=== PATIENT | male | born 1955 | race Caucasian/White ===

== ENCOUNTER 2019-10-01 16:03 | Observation (INO) ==
--- NOTE | 2019-10-01 16:55 | Emergency Department Note ---
ED Provider Note CHIEF COMPLAINT: Right ankle injury 4 hours ago HISTORY OF PRESENT ILLNESS: Patient is a 64-year-old male who presents the emergency department from [facility] for evaluation of a right ankle fracture. He reports around noon today, roughly 4 hours prior to arrival, he was coming down steps, and missed the last step, he believes sustaining an inversion type injury to the right ankle with immediate onset of pain. He tried to get up and took a few steps on the right ankle but had pain and was unable to ambulate. He went to [facility] where he had an x-ray performed which noted a bimalleolar fracture. [facility] was concerned because the patient has some superficial skin injuries over the medial malleolus and were concerned this could be an open fracture. The patient has not had any medications for discomfort, he rates his pain a 1/10 at rest. He applied ice only briefly. He notes a constant, aching pain in the entire ankle that is worse with movement and weightbearing. No numbness or tingling. REVIEW OF SYSTEMS: Review of systems as per HPI. All other systems reviewed were negative. At least 6 systems reviewed. PMH: Electronic medical records are reviewed and summarized as above/below. See Problem List. SOCIAL HISTORY: Patient lives at home with his spouse. Retired. PHYSICAL EXAM: Vital Signs: Reviewed Nurses' notes. MENTAL STATUS: Patient is a pleasant, well-appearing 64-year-old male who is awake and alert and in no acute distress. MUSCULOSKELETAL: Examination of the right lower extremity note both medial and lateral malleolar soft tissue swelling and ecchymosis. He has superficial scratches noted over the medial ankle. These are not full-thickness, do not gape with traction, and there is no bleeding noted. The ankle is globally tender to palpation. There is no pain over the fifth metatarsal or the proximal fibular head. Capillary refills less than 2 seconds. Dorsalis pedis pulses easily palpable. Calf is soft and nontender. The right lower extremity is neurovascularly intact. EMERGENCY DEPARTMENT COURSE: The patient was seen and assessed as above. Old records were reviewed. X-ray from outside facility was loaded into our x-ray viewer and was reviewed and interpreted by myself as a bimalleolar fracture, slightly displaced. X-ray findings were reviewed with the patient and his family. I did review the x-rays with Dr. Porter who is on-call for orthopedic surgery. Initially plan was to send the patient home for outpatient follow-up, but arrangements were able to be made for the patient to go to the OR tomorrow, and thus he will be admitted pending surgical intervention on 10/02/2019. This was reviewed with the patient and he was in agreement. The patient was placed in a short leg posterior Ortho-Glass splint. He was instructed on a nonweightbearing gait using crutches in the emergency department. He was admitted to the orthopedic service for plans for surgical intervention. Differential diagnoses included fracture, sprain, dislocation, among others. Impression & Plan Bimalleolar fracture of right ankle Past Med/Surg History Medical History Diabetes Dyslipidemia Social History Feels Safe at Home: Yes Smoking Status: Former smoker Results & Data Vital Signs Vital Signs - 24 hr 10/01/19 16:07 10/01/19 18:18 Temperature 36.7 C Temperature Source Oral Pulse Rate 116 H 87 Respiratory Rate 19 18 Respiratory Effort / Characteristics Non-Labored Respiratory Depth Normal Respiratory Pattern Regular Blood Pressure 154/83 H 141/81 H Blood Pressure Mean 106 Pulse Oximetry 97 99 Oxygen Delivery Method Room Air Sepsis Recent Fever Within 48 Hours No Sepsis Action Taken by Nursing No Action Required Home Medications Current Medication List: was personally reviewed by me Laboratory Data Result diagrams: 10/01/19 17:37 10/01/19 17:37 Lab Results 10/01/19 10/01/19 10/01/19 Range/Units 17:37 17:37 17:37 WBC 13.09 H (4.8-10.8) K/uL RBC 4.94 (4.7-6.1) M/uL Hgb 15.8 (14.0-18.0) g/dL Hct 44.7 (42-52) % MCV 90.5 (80-100) fL MCH 32.0 (25-34) pg MCHC 35.3 (32-36) g/dL RDW Std Deviation 41.8 (36.4-46.3) fL RDW Coeff of Gloria 12.7 (11.5-14.5) % Plt Count 247 (130-400) K/uL MPV 10.2 (7.4-10.4) fL Immature Gran % (Auto) 0.3 % Neut % (Auto) 81.7 % Lymph % (Auto) 10.4 % [place] % (Auto) 7.2 % Eos % (Auto) 0.2 % Baso % (Auto) 0.2 % Immature Gran # (Auto) 0.04 H (0.00-0.02) K/uL Neut # (Auto) 10.70 H (1.4-6.5) K/uL Lymph # (Auto) 1.36 (1.2-3.4) K/uL [place] # (Auto) 0.94 H (0.11-0.59) K/uL Eos # (Auto) 0.03 (0-0.5) K/uL Baso # (Auto) 0.02 (0-0.2) K/uL PT 10.5 (9.0-12.0) Seconds INR 1.0 (0.9-1.1) Sodium 137 (136-145) mmol/L Potassium 3.9 (3.5-5.1) mmol/L Chloride 106 (98-107) mmol/L Carbon Dioxide 25 (21-32) mmol/L Anion Gap 6.0 (3-11) BUN 24 H (7-18) mg/dl Creatinine 1.07 (0.6-1.4) mg/dl Est Cr Clr Drug Dosing 78.6 ml/min Est GFR ( Amer) 85.8 Est GFR (Non-Af Amer) 74.0 BUN/Creatinine Ratio 22.6 H (10-20) Glucose 151 H (70-99) mg/dl Calcium 9.5 (8.5-10.1) mg/dl Imaging Data Attestation: I personally reviewed and interpreted this imaging study as follows: My Impression: Bimalleolar right ankle fracture Blood Pressure Blood Pressure Findings: Elevated blood pressure Blood Pressure Disposition: elevated BP felt to be situational Discharge Plan Visit Data Chief Complaint: Ankle Pain Stated Complaint: RT ANKLE FX ED Provider: Bassam Dennison ED Midlevel Provider: Davis Serrato Discharge Problem: Bimalleolar fracture of right ankle Patient Disposition: Admitted As Inpatient Discharge Instructions Interventions: ED Discharge Assessment Last Done: 10/01/19 18:18 Forms Stand Alone Forms: My [facility], Important Visit Information Prescriptions Prescriptions: No Action atorvastatin 20 mg tablet 20 mg PO HS RF: 0 sertraline 25 mg tablet 25 mg PO HS RF: 0 lisinopril 2.5 mg tablet 2.5 mg PO QAM RF: 0 Lantus Solostar U-100 Insulin 100 unit/mL (3 mL) insulin pen 48 unit SUBCUT QAM RF: 0 Referrals Referrals: PCP,NO [Physician] -
[2019-10-01] MEDS ORDERED: ONDANSETRON INJ 2 MG/ML 2 ML VIAL IV PRN (17:00)
[2019-10-01 17:53] LABS: Basophils # (auto) 0.02 K/uL (0-0.2); Basophils % (auto) 0.2 %; Eosinophils # (auto) 0.03 K/uL (0-0.5); Eosinophils % (auto) 0.2 %; Hematocrit (blood only) 44.7 % (42-52); Hemoglobin 15.8 g/dL (14.0-18.0); Immature Granulocytes # (auto) 0.04 K/uL (0.00-0.02); Immature Granulocytes % (auto) 0.3 %; Lymphocytes # (auto) 1.36 K/uL (1.2-3.4); Lymphocytes % (auto) 10.4 %; Mean Corpuscular Hgb Conc 35.3 g/dL (32-36); Mean Corpuscular Volume 90.5 fL (80-100); Mean Platelet Volume 10.2 fL (7.4-10.4); Monocytes # (auto) 0.94 K/uL (0.11-0.59); Monocytes % (auto) 7.2 %; Neutrophils % (auto) 81.7 %; Platelet Count 247 K/uL (130-400); RDW Coefficient of Variation 12.7 % (11.5-14.5); RDW Standard Deviation 41.8 fL (36.4-46.3); Red Blood Count 4.94 M/uL (4.7-6.1); White Blood Count 13.09 K/uL (4.8-10.8)
[2019-10-01 18:12] LABS: BUN Creatinine Ratio 22.6 (10-20); Calcium 9.5 mg/dl (8.5-10.1); Creatinine Clr Calc Pharmacy 78.6 ml/min; Est GFR (African American) 85.8; Potassium 3.9 mmol/L (3.5-5.1)
[2019-10-01 18:18] LABS: Prothrombin Time 10.5 Seconds (9.0-12.0)
[2019-10-01] MEDS ORDERED: PHARMACY GLYCEMIC MGMT CONSULT PRN (20:45)
--- NOTE | 2019-10-01 20:59 | XRay Report ---
XR chest 2V PA/lateral CLINICAL HISTORY: 64 years-old Male presenting with pre-op. TECHNIQUE: PA and lateral views of the chest were obtained. COMPARISON: None. FINDINGS: Atherosclerosis of the aortic arch. Cardiac silhouette top normal in size. Lungs and pleural spaces c lear. Degenerative changes of the thoracic spine. Upper abdomen normal. IMPRESSION: 1. No acute cardiopulmonary disease. ACT 112: Negative or not required by law. Electronically signed by: Arturo De La Vega M.D. 10/01/2019 8:58 PM
[2019-10-01] MEDS ORDERED: CARBOHYDRATES FOR HYPOGLYCEMIA PO PRN (21:00)
[2019-10-01] MEDS ORDERED: DEXTROSE 50% 50 ML SYRINGE IV PRN (21:00)
[2019-10-01] MEDS ORDERED: GLUCOSE 10 TABS/TUBE PO PRN (21:00)
[2019-10-01] MEDS ORDERED: GLUCOSE 40% GEL 15 GM TUBE PO PRN (21:00)
[2019-10-01] MEDS ORDERED: GLUCAGON FOR INJ 1 MG VIAL SQ PRN (21:00)
[2019-10-01] MEDS: ATORVASTATIN 20 MG TAB PO SCH (21:21)
[2019-10-01] MEDS: SERTRALINE HCL 50 MG TABLET PO SCH (21:21)
[2019-10-01] MEDS: INSULIN ASPART 100 UNITS/ML 3 ML PEN SQ SCH (21:25)
[2019-10-01] MEDS: HYDROmorphone INJ 0.5 MG/0.5 ML SYR IV PRN (23:43)
[2019-10-01] MEDS: SODIUM CHLORIDE 0.9% 1000ML 1,000 ML IV SCH (23:43)
[2019-10-02] MEDS: HYDROmorphone INJ 0.5 MG/0.5 ML SYR IV PRN ×3 (05:36→12:52)
[2019-10-02] MEDS ORDERED: CEFAZOLIN 2000MG 2,000 MG/15 ML SYR IV SCH (06:00)
[2019-10-02] MEDS: INSULIN ASPART 100 UNITS/ML 3 ML PEN SQ SCH ×3 (06:11→20:10)
--- NOTE | 2019-10-02 06:42 | History & Physical Report ---
Date of Service October 02, 2019 Assessment & Plan (1) Bimalleolar fracture of right ankle: He will be admitted to the orthopedic service. Preoperative lab work will be obtained. He will be placed on glycemic control. He is currently on the OR schedule for operative fixation of his ankle in the afternoon of October 02. He is n.p.o. Consent has been obtained for the procedure. Encounter type: initial encounter Fracture type: closed Qualified Code(s): S82.841A - Displaced bimalleolar fracture of right lower leg, initial encounter for closed fracture Present on Admission?: Yes History of Present Illness Chief Complaint: Right unstable bimalleolar ankle fracture Primary Care Provider: FIDENCIO Silva Kishan is a pleasant 64-year-old male who stepped awkwardly off a step into his driveway late yesterday. He severely twisted his right ankle. He went to urgent care and x-rays demonstrated an unstable bimalleolar right ankle fracture. He also had some superficial wounds on the medial side. He was then sent to the emergency room. Orthopedics was contacted and he was admitted to the orthopedic service for definitive fixation the following day. Allergies Allergy/AdvReac Type Severity Reaction Status Date / Time No Known Allergies Allergy Verified 10/01/19 17:19 Home Medications Home Medications Medication Instructions Recorded Confirmed Type atorvastatin 20 mg PO HS 10/01/19 10/01/19 History insulin glargine [Lantus Solostar 48 unit SUBCUT QAM 10/01/19 10/01/19 History U-100 Insulin] lisinopril 2.5 mg PO QAM 10/01/19 10/01/19 History sertraline 25 mg PO HS 10/01/19 10/01/19 History Past Med/Surg History Medical History Diabetes Dyslipidemia Social History Preferred Language: Mosotho Communication Ability: Effective Application Support Required: No Beliefs That Will Affect Care: None Other Information That Helps Us Care for You: No Feels Safe at Home: Yes Safety Concerns: Feels Safe At This Time Smoking Status: Former smoker Hx Alcohol Use: Yes Hx Substance Use: No Review of Systems All systems reviewed & are unremarkable except as noted in HPI & below Physical Exam Constitutional: WD/WN, vitals as above Eyes: PERRL, conjunctivae normal, anicteric sclerae ENMT: external ear and nose normal, oropharynx normal Neck: trachea midline, no thyromegaly Respiratory: normal respiratory effort Cardiovascular: RRR, no murmur, no edema Gastrointestinal (Abdomen): normal bowel sounds, soft, nontender, no hepatosplenomegaly Musculoskeletal: On physical examination of the right ankle, a posterior splint is in place. He has active motion of all of his toes. He has good capillary refill. His right ankle is elevated. Psychiatric: A+Ox3, euthymic affect Results & Data Vital Signs (Past 12 Hours) Vital Signs Temp Pulse Resp BP BP Pulse Ox 10/01/19 23:12 36.9 C 83 16 115/74 95 10/01/19 18:57 36.8 C 107 H 18 149/83 H 96 Laboratory Results H & H 10/01/19 Range/Units 17:37 Hgb 15.8 (14.0-18.0) g/dL Hct 44.7 (42-52) % Coagulation 10/01/19 Range/Units 17:37 INR 1.0 (0.9-1.1) Diagnostic Findings X-rays of the right ankle show an unstable right bimalleolar ankle fracture. It is a transverse fracture of the medial malleolus and a comminuted distal fibular fracture. There is some slight lateral translation of the ankle.
--- NOTE | 2019-10-02 08:40 | Pharmacy Report ---
Glycemic Control Consultation - Date of Service October 02, 2019 - Scope Scope: Glycemic Pharmacist consulted by Dr Porter on 10/02 for glycemic control and to write orders per [facility] inpatient glycemic control protocol - Objective Weight: 94.801 kg Accuchecks BSG (last 24hrs): 10/01/19 10/01/19 10/01/19 17:37 19:06 20:32 Glucose 151 H POC Glucose 140 H 176 H 10/02/19 06:04 Glucose POC Glucose 115 H Laboratory Data (last 24hrs): 10/01/19 17:37 Potassium 3.9 Carbon Dioxide 25 Anion Gap 6.0 Creatinine 1.07 Est Cr Clr Drug Dosing 78.6 - Recent Pertinent Medications Outpatient Anti-diabetic Regimen: * Lantus 48 units Qam * A1c = ordered for 10/03 Risk Factors for Insulin Resistance: * Recent Surgery: scheduled for 10/02 * Diet: NPO - Assessment & Plan Assessment & Plan: ASSESSMENT: * 64 year old male with fracture of right ankle. Scheduled for OR today. Pharmacy consulted for glycemic management. * Currently NPO this morning in preparation for surgery. Only receiving basal insulin outpatient. Last dose received was 1/6 am of Lantus 48 units * Fasting this AM 115 mg/dl - will reduce basal insulin by ~50% for this morning since NPO status. Outpatient insulin covering total daily insulin requirements (including meals) therefore was more aggressive with reduction of dose this AM * Will add scale for Lantus post surgery/this evening - will monitor if patient receives steroids. So far, did give dexamethasone in OR - will add scale for Lantus tonight PLAN FOR INPATIENT GLYCEMIC CONTROL: * Basal insulin * Lantus 20 units this AM (reduced ~50% for NPO status) * Lantus per scale with dinner/HS -no insulin less than 180 bsg -lantus 10 units if bsg 180 or greater * Bolus insulin * NovoLog per scale ACHS or Q6hrs while NPO * Goal Range: Low 110 mg/dL - High 140 mg/dL * Correction Factor: 20 mg/dL/unit * Nutritional / Prandial insulin per carb ratio of 1 unit per 7 grams CHO consumed * Please note that the plan above was derived based on current level of insulin resistance and hospital stress. These recommendations are appropriate for inpatient admission only. Plan of care upon discharge will need to be reassessed to avoid potential outpatient hypo/hyperglycemia. Thank you.
[2019-10-02] MEDS ORDERED: INSULIN GLARGINE SOLOSTAR 100 UNITS/ML 3 ML PEN SC ONE (09:00)
--- NOTE | 2019-10-02 09:42 | Electrocardiogram Report ---
Test Reason : Blood Pressure : / mmHG Vent. Rate : 107 BPM Atrial Rate : 107 BPM P-R Int : 164 ms QRS Dur : 092 ms QT Int : 324 ms P-R-T Axes : 053 002 043 degrees QTc Int : 432 ms Poor data quality, interpretation may be adversely affected Sinus tachycardia Low voltage QRS Borderline ECG No previous ECGs available Confirmed by Eric Calderón ([id number]) on 10/02/2019 9:42:43 AM Referred By: REFERRED SELF Confirmed By:Eric Calderón
[2019-10-02] MEDS: SODIUM CHLORIDE 0.9% 1000ML 1,000 ML IV SCH ×4 (12:00→23:29)
[2019-10-02] MEDS ORDERED: LIDOCAINE HCL 2% 2 ML VIAL/AMP(20MG/ML) INFIL ONE (15:11)
[2019-10-02] MEDS ORDERED: fentaNYL citrate 100 MCG/2 ML VIAL ONE (15:11)
[2019-10-02] MEDS ORDERED: ONDANSETRON INJ 2 MG/ML 2 ML VIAL ONE (15:11)
[2019-10-02] MEDS ORDERED: DEXAMETHASONE SOD INJ 4 MG/ML VIAL ONE (15:11)
[2019-10-02] MEDS ORDERED: MIDAZOLAM HCL 1 MG/ML 2ML VIAL ONE (15:11)
[2019-10-02] MEDS ORDERED: PROPOFOL IV EMULSION 10 MG/ML 20 ML VIAL IV ONE (15:11)
[2019-10-02] MEDS ORDERED: BUPIVACAINE/EPINEPHRINE 0.5% MPF 1:200,000 10 ML VIAL ONE ×2 (15:27→15:28)
--- NOTE | 2019-10-02 15:38 | Anesthesiology Consultation ---
Date of Service October 02, 2019 Assessment & Plan (1) Encounter for pre-operative examination: Chart Review Chart Review: Acceptable Risk for Surgery and Patient NOT seen in Pre Admission Testing Consults Requested none History Surgery Operation Date: 10/02/19 11:10 Proposed Procedures p Right Ankle Open Reduction Internal Fixation - Martin Horowitz MD Height/Weight Height: 5 ft 7 in Weight: 94.801 kg Allergies Allergy/AdvReac Type Severity Reaction Status Date / Time No Known Allergies Allergy Verified 10/01/19 17:19 Medications Home Medications Medication Instructions Recorded Confirmed Last Taken atorvastatin 20 mg PO HS 10/01/19 10/01/19 09/30/19 insulin glargine [Lantus Solostar 48 unit SUBCUT QAM 10/01/19 10/01/19 10/01/19 U-100 Insulin] lisinopril 2.5 mg PO QAM 10/01/19 10/01/19 10/01/19 sertraline 25 mg PO HS 10/01/19 10/01/19 09/30/19 Active Medications Generic Name Dose Route Start Last Admin Trade Name Freq PRN Reason Stop Dose Admin Atorvastatin Calcium 20 mg 10/01/19 21:00 10/01/19 21:21 Lipitor PO 10/31/19 20:59 20 mg HS ANIYA Administration Hydromorphone HCl 0.5 mg 10/01/19 17:00 10/02/19 12:52 Dilaudid IV 10/15/19 16:59 0.5 mg Q1H PRN Administration Pain Sodium Chloride 1,000 mls @ 80 mls/hr 10/01/19 17:00 10/02/19 12:00 Nss 1000ml IV 10/31/19 16:59 80 mls/hr .[id number] ANIYA Administration Insulin Aspart 0 units 10/01/19 21:00 10/02/19 13:04 Novolog Flexpen SQ 10/31/19 20:59 Not Given Q6 ANIYA Lisinopril 2.5 mg 10/02/19 09:00 10/02/19 09:43 Zestril PO 11/01/19 08:59 2.5 mg QAM ANIYA Administration Sertraline HCl 25 mg 10/01/19 21:00 10/01/19 21:21 Zoloft PO 10/31/19 20:59 25 mg HS ANIYA Administration NPO Date Last Intake of Fluids: 10/02/19 Time Last Intake of Fluids: 23:55 Last Intake of Fluids Comment: a few ice chips Date Last Intake of Solids: 10/01/19 Time Last Intake of Solids: 18:00 Past Medical History Medical History Diabetes Dyslipidemia Social History Smoking Status: Former smoker Hx Alcohol Use: Yes Hx Substance Use: No Physical Exam Vital Signs Last Vital Signs Temp 36.9 C 10/02/19 07:41 Pulse 84 10/02/19 07:41 Resp 18 10/02/19 07:41 BP 101/68 10/02/19 07:41 Pulse Ox 96 10/02/19 07:41 Testing Laboratory Results 10/01/19 17:37 10/01/19 17:37 PT 10.5 Seconds (9.0-12.0) 10/01/19 17:37 INR 1.0 (0.9-1.1) 10/01/19 17:37 10/02/19 10/02/19 10/02/19 15:16 12:05 06:04 POC Glucose 92 112 H 115 H Electrocardiogram Date: 10/01/19 Findings: + ST @ (107) low voltage QRS Chest X-Ray Date: 10/01/19 [place], [place] [phone] XRay Report Patient: GUSTAVO WEEKS Date: 10/01/19 MR#: [id number]: 150 AMBREEN CHRISTOPHER Acct ID:[id number]: Date: 1955[facility] Zip: [place] [address] Age: 64Location: 3N Sex: M Room/Bed: [facility] Att Phy: Andres Porter DODiagnosis: R MAKENZIE ANKLE FRACTURE Leslie Phy: Ashley Ludwig CRNPService Date: 10/01/19 Fam Phy:Interpreting Phy: Arturo De La Vega MD Admit Phy: Andres Porter DO Ordering Phy: Andres Porter DO cc: ~ XR chest 2V PA/lateral CLINICAL HISTORY: 64 years-old Male presenting with pre-op. TECHNIQUE: PA and lateral views of the chest were obtained. COMPARISON: None. FINDINGS: Atherosclerosis of the aortic arch. Cardiac silhouette top normal in size. Lungs and pleural spaces clear. Degenerative changes of the thoracic spine. Upper abdomen normal. IMPRESSION: 1. No acute cardiopulmonary disease. ACT 112: Negative or not required by law. Electronically signed by: Arturo De La Vega M.D. 10/01/2019 8:58 PM Dictated: 10/01/192056 Transcribed: 10/01/192056
[2019-10-02] MEDS ORDERED: LABETALOL HCL IV 5 MG/ML 20ML IV PRN (15:42)
[2019-10-02] MEDS ORDERED: PHENYLEPHRINE 100MCG/ML 5ML SYR IV PRN (15:42)
[2019-10-02] MEDS ORDERED: HYDROmorphone INJ 1 MG/ML SYRINGE IV PRN (15:42)
[2019-10-02] MEDS ORDERED: ATROPINE SULFATE 0.1 MG/ML 10ML SYR IV PRN (15:42)
[2019-10-02] MEDS ORDERED: fentaNYL citrate 100 MCG/2 ML VIAL IV PRN (15:42)
[2019-10-02] MEDS ORDERED: ONDANSETRON INJ 2 MG/ML 2 ML VIAL IV PRN ×2 (15:42→18:34)
[2019-10-02] MEDS ORDERED: ePHEDrine sulfate 50 MG/ML AMP IV PRN (15:42)
--- NOTE | 2019-10-02 15:53 | History & Physical Bridge Note ---
Date of Service October 02, 2019 History & Physical Bridge Note I have examined the patient, reviewed the History & Physical and in the interval since the performance of the History & Physical I have noted the following changes of clinical significance: I will be taking over this patient's care from Dr. Allison. Reviewed procedure in detail with patient and consent signed. No other interval changes.
[2019-10-02] MEDS ORDERED: BACITRACIN INJ 50,000 UNIT VIAL ONE (15:55)
[2019-10-02] MEDS ORDERED: KETOROLAC 30 MG/ML VIAL ONE (16:34)
--- NOTE | 2019-10-02 17:17 | Fluoroscopy Report ---
FL ankle RT min 3V RTN CLINICAL HISTORY: RT ANKLE ORIF COMPARISON STUDY: 10/01/2019 FLUOROSCOPY TIME: 22 seconds NUMBER OF FLUOROSCOPIC IMAGES: 3 FINDINGS: Successful open reduction internal fixation of the medial as well as lateral malleolus. Ali gnment is anatomic. IMPRESSION: Anatomic alignment post open reduction internal fixation. ACT 112: Negative or not required by law. The above report was generated using voice recognition software. It may contain grammatical, syntax or spelling errors. Electronically signed by: Gaetano Toney M.D. 10/02/2019 5:16 PM
--- NOTE | 2019-10-02 17:33 | Operative Report ---
Post Operative Report Pre & Post Diagnosis Operation Date: 10/02/19 11:10 Pre-Op Diagnosis: Bimalleolar fracture of right ankle Post-Op Diagnosis: Bimalleolar fracture of right ankle I identified the patient and participated in the time-out.: Yes Procedure Operation Date: 10/02/19 11:10 Actual Procedures p Right Ankle Open Reduction Internal Fixation(Right) - Martin Horowitz MD Surgeon Martin Horowitz MD Technician Helper Instrument Thais, PAC Estimated Blood Loss 20 Findings Consistent with Post-Op Diagnosis Fluids 1000 cc Specimens none. Drains None Anesthesia Type General Complications none Disposition Accompanied Patient To Recovery: Yes Disposition: Recovery Room Indications Patient is a 64-year-old gentleman and diabetic who sustained a right ankle injury yesterday. He initially presented to urgent care where x-rays were a bimalleolar fracture. He was furred to the hospital, splinted, admitted for ned gical fixation. Description of Procedure Operative implants consisted of: 1. Synthes 7 hole one third semitubular locking plate. 2. 3.5 fully threaded cortical screws x4. 3. 4.0 fully threaded cancellus screws x1. 4. 4.0 long threaded/partially-threaded cannulated screws x2. Patient is taken to the operating room identified and placed on the operating table supine position protectors were properly padded. IV antibiotics arrived by anesthesia team. General anesthetic was employed by anesthesia team. A right thigh tourniquet was then placed. The right lower extremity splint was then removed. He did have some serous fracture blisters medially which were not in the area the incision site. The right leg was then scrubbed with Hibiclens and then prepped with ChloraPrep and draped in usual sterile fashion. Right leg was elevated and exsanguinated with use of an Esmarch and turns placed at 300 mmHg. A medial approach to the ankle was then performed to a curvilinear incision. Sharp passes Through subcutaneous tissue directly down the fracture site. Try to minimize the soft tissue stripping due to the severe nature of the soft tissue injury and the swelling. I had to pick some of the periosteum at the fracture site. We debrided the fracture of all hematoma and then reduced anatomically and held it with 2 wires. I then placed two4.0 long threaded cannulated screws over the guidewires with each screw with a washer. Despite excellent fixation we got some posterior cortex fixation with a posterior screw. The ankle is very stable with this fixation. Attention drawn laterally. A direct lateral approach to the fibula was then performed through a longitudinal incision over the posterior lateral border the fibula. Sharp lysis got through subcutaneous tissue directly down to the fibula. The fibula was markedly comminuted and very distal fracture. I did not do any stripping. I reduce this leg length twice and then pinned it to the talus. I could not provide any interfragmentary screw fixation. I then contoured a 7-hole one third semitubular plate the distal and posterior lateral side of the fibula. This was to serve as a buttress/antiglide plate. I fixed it proximally with four 3.5 fully threaded cortical screws and distally with a single 4.0 fully threaded cancellus screw. The provide good fixation and a buttress laterally. I x-rays brought in. All screws were appropriate length. The ankle was stable to stress testing. Attention drawn to closing. Both wounds irrigated extensively. I injected locally with 30 cc of half percent Marcaine with epinephrine. The periosteum over the fibular plate was closed with 2-0 Vicryl suture in a [id number] fashion. The tourniquet was then let down for turn time of 42 minutes. Hemostasis assured use electrocautery. The wounds once again irrigated. The medial wound was then closed with a 3-0 nylon suture in simple fashion. The lateral wound was then closed in 2 layers with deep layer 2-0 Vicryl suture in buried interrupted fashion skin with a 3-0 nylon suture in simple fashion the leg was then cleaned dried a sterile dressing composed of Xeroform, 4 x 4's, sterile cast padding, and a posterior and stirrup splint were applied. Patient then brought [facility] and transferred to the recovery room in stable condition. Patient tolerated p rocedure well and there were no complications. I attest to the content of the Intraoperative Record and any orders documented therein. Any exceptions are noted below.
--- NOTE | 2019-10-02 17:55 | Anesthesiology Progress Note ---
Date of Service October 02, 2019 Anesthesia Post Procedure Vital Signs Vital Signs: Temp Pulse Pulse Pulse Resp BP BP 10/02/19 17:45 82 16 126/69 10/02/19 17:35 81 13 123/64 10/02/19 17:26 37.7 C H 88 15 130/69 10/02/19 07:41 36.9 C 84 18 101/68 10/01/19 23:12 36.9 C 83 16 115/74 10/01/19 18:57 36.8 C 107 H 18 10/01/19 18:18 87 18 141/81 H BP Pulse Ox 10/02/19 17:45 100 10/02/19 17:35 100 10/02/19 17:26 95 10/02/19 07:41 96 10/01/19 23:12 95 10/01/19 18:57 149/83 H 96 10/01/19 18:18 99 Pain Intensity Right Ankle: Pain Intensity: 3 Transfer of Care Handoff Completed per policy Notes Mental Status: alert / awake / arousable and participated in evaluation Patient Amnestic to Procedure: Yes Nausea / Vomiting: adequately controlled Pain: adequately controlled Airway Patency, RR, SpO2: stable & adequate BP & HR: stable & adequate Hydration State: stable & adequate Anesthetic Complications: no major complications apparent and Pt Satisfied with anesthetic care
[2019-10-02] MEDS ORDERED: ALUMINUM/MAGNESIUM SUSP 30 ML UDC PO PRN (18:34)
[2019-10-02] MEDS ORDERED: NALOXONE HCL 0.4 MG/1 ML VIAL/CARP IV PRN (18:34)
[2019-10-02] MEDS ORDERED: METOCLOPRAMIDE HCL INJ 5 MG/ML 2 ML VIAL IV PRN (18:34)
[2019-10-02] MEDS ORDERED: MAGNESIUM HYDROXIDE SUSP 30 ML UDC PO PRN (18:34)
[2019-10-02] MEDS ORDERED: bisacodyL 10 MG SUPP PR PRN (18:34)
[2019-10-02] MEDS ORDERED: OXYCODONE HCL IR 5 MG TAB (IMMEDIATE RELEASE) PO PRN (18:34)
[2019-10-02] MEDS ORDERED: PHARMACY GLYCEMIC MGMT CONSULT STA (18:34)
[2019-10-02] MEDS ORDERED: TAMSULOSIN HCL 0.4 MG CAP PO PRN (18:34)
[2019-10-02] MEDS: DOCUSATE SODIUM 100 MG CAP PO SCH (20:06)
[2019-10-02] MEDS: SERTRALINE HCL 50 MG TABLET PO SCH (20:06)
[2019-10-02] MEDS: ATORVASTATIN 20 MG TAB PO SCH (20:06)
[2019-10-02] MEDS: ASPIRIN 81 MG ECTAB PO SCH (20:06)
[2019-10-02] MEDS ORDERED: INSULIN GLARGINE SOLOSTAR 100 UNITS/ML 3 ML PEN SC SCH (21:00)
[2019-10-02] MEDS ORDERED: SENNA 8.6 MG TAB PO SCH (21:00)
[2019-10-02] MEDS: ACETAMINOPHEN 500 MG TAB PO SCH (21:01)
[2019-10-02] MEDS: CEFAZOLIN 2000MG 2,000 MG/15 ML SYR IV SCH (23:24)
[2019-10-02] MEDS: KETOROLAC 30 MG/ML VIAL IV SCH (23:25)
[2019-10-03] MEDS ORDERED: INSULIN ASPART 100 UNITS/ML 3 ML PEN SQ SCH ×2 (02:00→07:30)
[2019-10-03] MEDS: KETOROLAC 30 MG/ML VIAL IV SCH ×2 (06:06→11:08)
[2019-10-03] MEDS: ACETAMINOPHEN 500 MG TAB PO SCH ×2 (06:06→13:37)
[2019-10-03 08:21] LABS: Estimated Average Glucose 143 mg/dl; Hemoglobin A1C 6.6 % (4.5-5.6)
[2019-10-03] MEDS ORDERED: MULTIVITAMIN TAB PO SCH (09:00)
[2019-10-03] MEDS: CEFAZOLIN 2000MG 2,000 MG/15 ML SYR IV SCH (09:23)
[2019-10-03] MEDS: DOCUSATE SODIUM 100 MG CAP PO SCH (09:23)
[2019-10-03] MEDS: ASPIRIN 81 MG ECTAB PO SCH (09:24)
--- NOTE | 2019-10-03 09:53 | Progress Note ---
DATE: 10/03/2019 SUBJECTIVE: A 64-year-old diabetic postop day 1 from ORIF of right bimalleolar ankle fracture. He is doing well. Reports no pain this morning. No chest pain or shortness of breath. Not feeling dizzy or lightheaded. He is still set to go home. OBJECTIVE: VITAL SIGNS: Temperature 36.8. Vital signs stable. GENERAL: Shows a pleasant, middle-aged male. He is sitting on bed, looks pretty comfortable. LUNGS: Clear to auscultation. HEART: Regular rate and rhythm. ABDOMEN: Soft, nontender, nondistended. EXTREMITIES: Grossly neurovascularly intact except as follows: Examination of the right leg reveals the splint to be clean, dry and intact. There is no drainage. He can dorsiflex and plantarflex his toes appropriately. He is neurologically intact. ASSESSMENT: A 64-year-old gentleman postop day 1 from an ORIF of right bimalleolar ankle fracture, doing well. Pain is controlled. He is neurologically intact. PLAN: 1. DVT prophylaxis including thigh-high TEDs, SCDs, and aspirin twice a day for the next month. 2. PT/OT. He is going to be nonweightbearing on this right leg for the next 2 weeks. We will get him a walker and a wheelchair with an elevated leg rest. 3. Pain control, doing well with current pain regimen. 4. Disposition: Plan to discharge to home after therapy today.
--- NOTE | 2019-10-05 16:26 | Discharge Summary ---
ADMITTING PHYSICIAN: Dr. Porter. SURGEON: Dr. Martin Horowitz. ADMITTING DIAGNOSIS: Bimalleolar fracture of the right ankle. PROCEDURE PERFORMED: Open reduction internal fixation of right ankle on 10/02/2019. SECONDARY DIAGNOSES: Diabetes, dyslipidemia. CONSULTS: None obtained. HISTORY AND PHYSICAL EXAMINATION: Well documented in the patient's chart. HOSPITAL COURSE: The patient was admitted on 10/01/2019 with an unstable bimalleolar ankle fracture. The following day on 10/02/2019 underwent open reduction internal fixation of the ankle fracture. He tolerated the procedure well. There were no complications. He was transferred to the PACU postoperatively and later to the orthopedic floor for further care. He was given Ancef for antibiotic prophylaxis, KEEGAN stockings, SCDs and aspirin for DVT prophylaxis. Vital signs were monitored during his hospital stay and remained stable, did not require any blood transfusions. There were no complications. By postoperative day 1, he was tolerating a diabetic diet. Pain was controlled with oral pain medicine. He was participating in physical therapy. On postop day 1, he was discharged home. He was given printed discharge instructions as well as new prescriptions for extra strength Tylenol, aspirin and oxycodone. Continue his home medications, continue nonweightbearing to the right lower extremity, elevate his right leg as much as possible, keep pressure off of his heel. Keep splint clean and dry and intact until he follows up in approximately 2 weeks postop or sooner if there are any problems or concerns.
== END 2019-10-03 13:55 | disposition home or self-care (01) ==
LOC: ED 16:03 → INTOOBSV 17:00 → 3N 17:00